=== PATIENT | female | born 1965 | race Caucasian/White ===

== ENCOUNTER → 2016-09-25 | Outpatient (CLI) | payer BC ==
[~2016-09-25] MED LIST: ALPRAZOLAM PO; LUVOX; TYLOX 5/500 CAP1 CAP PO; ZITHROMAX PO
--- NOTE | ~2016-09-25 | MY11 ---
[facility] A Service [facility] RADIOLOGY TEXT RESULTS PATIENT: AMADEO BYRNE LOCATION: [facility] : 63 UNIT #: [id number] AGE: [address]: Alivia Rosales SEX: F ORDER DR: [id number] [place] [id number] O MR#: [id number] Acc #: [id number] NAME: AMADEO BYRNE : 1965 SEX: F STUDY DATE/TIME: 09/25/2016 11:11 UNIT: [facility] ROOM: STUDY DESCRIPTION: MY Mammogram Screening Dig Germán Attending Physician: Alivia Rosales A.P.R.N. Referring Physician: Alivia Rosales A.P.R.N. Ordering Physician: Alivia Rosales A.P.R.N. Primary Care Physician: Alivia Rosales A.P.R.N. MEDICAL IMAGING REPORT This report is preliminary unless electronic signature is present. EXAM Digital screening mammogram with CAD. INDICATIONS Routine screening. PROCEDURE Bilateral CC and MLO views obtained on a digital mammography unit, FDA-approved CAD device utilized. COMPARISON 03/25/2015 FINDINGS Scattered fibroglandular density. No dominant mass or suspicious mass calcification. IMPRESSION Negative screening mammogram. Screen interval in 1 year suggested. Patients over the age of 40 are entered into a reminder system with target due date for the next mammogram. A result letter will also be sent to the patient. BIRADS: 1 Negative. Dictated by... Homer Leos M.D. THIS IS AN ELECTRONICALLY VERIFIED REPORT Homer Leos M.D. at 09/28/2016 7:[address] [facility] A Service [facility] RADIOLOGY TEXT RESULTS PATIENT: AMADEO BYRNE LOCATION: [facility] : 63 UNIT #: [id number] AGE: [address]: Alivia Rosales SEX: F ORDER DR: Blair TD: 09/25/2016 16:29 JOB #: [id number] MEDICAL IMAGING REPORT Page 1 of 1
== END | disposition home or self-care (01) ==
LOC: SMAM 10:38
DX: Z12.31 Encounter for screening mammogram for malignant neoplasm of breast (principal)
CPT/HCPCS: G0202